=== PATIENT | female | born 1945 | race Caucasian/White ===

== ENCOUNTER 2016-09-28 11:57 | Emergency (ER) | payer OTHER ==
[~2016-09-28] VITALS: Ht 162.6 cm; Wt 69.8 kg
[~2016-09-28 11:57] MED LIST: ALBUTEROL0.63 MG/3 IH; ASPIR 8181 M1 PO; CALCIUM + D3 E1 EACH PO; CENTRUM SILVER1 EAC4 PO; COMBIVENT RESPIM4 GM IH; COUMADIN1 MG PO; COUMADIN2.5 MG PO; CRESTOR40 MG PO; CYTOTEC200 MCG PO; DEXILANT60 MG PO; DOMP10T PO; EXCEDRIN EXTRA1 EACH PO; FLONASE16 G1 BOTH NARES; GLUCOSAMINE &1 EAC1 PO; IRON325 MG PO; KEPPRA XR500 MG PO; OMEGA 3-6-9 11200 MG PO; PERCOCET 5/31 TABLET PO; SPIRIVA RESPIMAT4 G1 IH; SYMBICORT60 INHALA1 IH; TENORMIN100 MG PO; TRADJENTA5 MG PO; ULTRA SLEEP25 MG PO; ULTRAM50 MG PO; VISTARIL25 MG PO; VITAMIN C1000 MG PO; WELLBUTRIN100 MG PO; ZETIA10 MG PO; ZYRTEC10 M3 PO
[2016-09-28 13:03] LABS: HEMATOCRIT 41.6 % (36.0-46.0); MCH 29.9 PG (29.0-34.0); MCHC 32.7 G/DL (30.0-36.0); MCV 91.4 FL (83-99); MEAN PLAT.VOLUME 8.7 uM^3 (9.5-12.4); PLATELET COUNT 417 K/uL (156-360); RBC DIS.WIDTH-CV 12.4 % (11.8-14.6); RBC DIS.WIDTH-SD 41.4 % (39-53); RED BLOOD COUNT 4.55 M/uL (3.80-5.20); WHITE BLOOD COUNT 9.3 K/uL (4.1-10.2)
[2016-09-28 13:23] LABS: CHLORIDE 101 mEq/L (99-109); SODIUM 138 mEq/L (136-147)
[2016-09-28 13:26] LABS: ANION GAP 12 MEQ/L (2-14); GLUCOSE 138 mg/dL (70-99)
[2016-09-28 13:27] LABS: TOTAL BILIRUBIN 0.4 mg/dL (0.0-1.0)
[2016-09-28 13:28] LABS: ALKALINE PHOSPHATASE 126 IU/L (3-129)
[2016-09-28 13:29] LABS: GFR ESTIMATE (CALCULATED) 40 mL/min/
[2016-09-28 13:30] LABS: UREA NITROGEN (BUN) 12 mg/dL (9-23)
[2016-09-28 13:39] LABS: LIPASE 7 U/L (1.0-51.0)
[2016-09-28 14:29] LABS: ADD MIUA? NO; BILIRUBIN NEGATIVE; BLOOD NEGATIVE; COLOR YELLOW ((YELLOW)); GLUCOSE (STRIP) NEGATIVE; KETONES NEGATIVE; LEUKOCYTES NEGATIVE; NITRITE NEGATIVE; PROTEIN (STRIP) NEGATIVE; UCUL ADDED? NO; UROBILINOGEN 0.2 MG/DL (0.2-1.0)
[2016-09-28] MEDS ORDERED: TRAMADOL HCL50 MG PO (15:20)
[2016-09-28] MEDS ORDERED: CIPRO500 MG PO (15:20)
[2016-09-28 15:28] VITALS: BP 147/77
== END 2016-09-28 15:30 | disposition home or self-care (01) ==
LOC: EME 11:57
DX: K52.9 Noninfective gastroenteritis and colitis, unspecified (principal); K21.9 Gastro-esophageal reflux disease without esophagitis; J44.9 Chronic obstructive pulmonary disease, unspecified; E11.9 Type 2 diabetes mellitus without complications; Z87.891 Personal history of nicotine dependence
CPT/HCPCS: 74177; 80053; 81003; 83690; 85027; 99281; 99283; J7030

== ENCOUNTER 2016-10-01 14:45 | Inpatient (IN) | payer OTHER ==
[~2016-10-01] VITALS: Ht 162.6 cm; Wt 73.0 kg
[~2016-10-01 14:45] MED LIST changes: +CIPRO500 MG PO; +TRAMADOL HCL50 MG PO
[2016-10-01 15:56] LABS: HEMATOCRIT 46.8 % (36.0-46.0); MCH 29.8 PG (29.0-34.0); MCHC 33.8 G/DL (30.0-36.0); MCV 88.3 FL (83-99); NRBC (%) 0.1 /100 WBC (0-0); PLATELET COUNT 517 K/uL (156-360); RBC DIS.WIDTH-CV 12.8 % (11.8-14.6); RBC DIS.WIDTH-SD 41.2 % (39-53); WHITE BLOOD COUNT 20.3 K/uL (4.1-10.2)
[2016-10-01 16:06] LABS: CHLORIDE 94 mEq/L (99-109); POTASSIUM 4.1 mEq/L (3.7-5.4)
[2016-10-01 16:08] LABS: GLUCOSE 229 mg/dL (70-99)
[2016-10-01 16:09] LABS: ANION GAP 21 MEQ/L (2-14)
[2016-10-01 16:12] LABS: ALKALINE PHOSPHATASE 114 IU/L (3-129)
[2016-10-01 16:14] LABS: GFR ESTIMATE (CALCULATED) 19 mL/min/; SODIUM 128 mEq/L (136-147); TOTAL BILIRUBIN 0.3 mg/dL (0.0-1.0); UREA NITROGEN (BUN) 35 mg/dL (9-23)
[2016-10-01 16:32] LABS: TROP-I INTERPRETATION NEGATIVE; TROPONIN-I < 0.01 ng/mL (0.0-0.30)
[2016-10-01] MEDS ORDERED: SYMBICORT60 INHALAT IH (20:16)
[2016-10-01] MEDS ORDERED: SINGULAIR10 MG PO (20:21)
[2016-10-01] MEDS ORDERED: ASPIR 8181 M1 PO (20:22)
[2016-10-01] MEDS ORDERED: PROAIR HFA8.5 GM IH (20:22)
[2016-10-01 22:14] LABS: ADD MIUA? YES; BILIRUBIN NEGATIVE; BLOOD NEGATIVE; COLOR YELLOW ((YELLOW)); GLUCOSE (STRIP) 50; KETONES NEGATIVE; LEUKOCYTES NEGATIVE; NITRITE NEGATIVE; PROTEIN (STRIP) 30; SPECIFIC GRAVITY 1.016 (1.000-1.030); UROBILINOGEN 0.2 MG/DL (0.2-1.0)
[2016-10-01 22:19] LABS: BASE EXCESS -8.7 mEq/L (-3 to +3); BICARBONATE 15.5 mEq/L (22-26); CARBOXY HGB 1.6 % (0-5); METHEMOGLOBIN 1.2 % (0-1.5); PCO2 28 mm Hg (35-45); PO2 81 mm Hg (80-100); pH 7.35 (7.35-7.45)
[2016-10-01 22:20] LABS: COMMENTS - BLOOD GASES A+C+; DEVICE ROOM AIR; SITE LR; TOTAL RESP RATE 16 resp/min
[2016-10-01 22:25] LABS: BACTERIA RARE /HPF; EPITHELIAL CELLS RARE /HPF; MUCUS TRACE /LPF; RED BLOOD CELLS 0-5 /HPF (0-5); UCUL ADDED? NO; WHITE BLOOD CELLS 0-5 /HPF (0-5)
[2016-10-01 22:45] VITALS: BP 140/75
[2016-10-01 22:54] LABS: C-REACTIVE PROTEIN > 240.0 MG/L (0-10)
[2016-10-01 23:14] LABS: C DIFF TOXIN POSITIVE (NEGATIVE)
[2016-10-01 23:15] LABS: PROBE CHECK PASS
[2016-10-02 03:12] LABS: POTASSIUM 4.2 mEq/L (3.7-5.4); SODIUM 133 mEq/L (136-147)
[2016-10-02 03:14] LABS: GLUCOSE 153 mg/dL (70-99)
[2016-10-02 03:15] LABS: ANION GAP 14 MEQ/L (2-14)
[2016-10-02 03:18] LABS: UREA NITROGEN (BUN) 36 mg/dL (9-23)
[2016-10-02 03:23] LABS: CHLORIDE 106 mEq/L (99-109); GFR ESTIMATE (CALCULATED) 30 mL/min/
[2016-10-02 04:51] VITALS: BP 118/64
[2016-10-02 08:49] VITALS: BP 122/54
[2016-10-02 09:40] LABS: HEMATOCRIT 38.1 % (36.0-46.0); MCH 30.8 PG (29.0-34.0); MCHC 34.1 G/DL (30.0-36.0); MCV 90.3 FL (83-99); MEAN PLAT.VOLUME 9.4 uM^3 (9.5-12.4); NRBC (%) 0.1 /100 WBC (0-0); PLATELET COUNT 460 K/uL (156-360); RBC DIS.WIDTH-CV 13.1 % (11.8-14.6); WHITE BLOOD COUNT 20.3 K/uL (4.1-10.2)
[2016-10-02 09:42] LABS: RED BLOOD COUNT 4.22 M/uL (3.80-5.20)
[2016-10-02 10:04] LABS: ANION GAP 13 MEQ/L (2-14); CHLORIDE 101 MEQ/L (99-109); GFR ESTIMATE (CALCULATED) 32 mL/min/; GLUCOSE 151 mg/dL (70-99); POTASSIUM 4.2 MEQ/L (3.7-5.4); SAMPLE HEMOLYSIS CHECK 0; SAMPLE ICTERIC CHECK 0; SAMPLE LIPEMIA CHECK 0; SODIUM 132 MEQ/L (136-147); UREA NITROGEN (BUN) 32 mg/dL (9-23)
[2016-10-02 10:26] LABS: ABS NEUTROPHIL COUNT 17.6; BAND NEUTROPHILS 21.1 % (0-8.0); BURR CELLS 1+; EOSINOPHIL ABS CT 0.1; EOSINOPHILS 0.5 % (0-5.0); LYMPHOCYTES 4.3 % (15.0-45.0); METAMYELOCYTES 1.3 %; MYELOCYTES 0.4 %; OVALOCYTES 1+; PLAT.SUFFICIENCY INCREASED; POIKILOCYTOSIS 2+; SEG.NEUTROPHILS 65.5 % (46.0-76.0); SPHEROCYTES 1+; TOX.VACUOLIZATION 1+; TOXIC GRANULATION 1+
[2016-10-02 11:29] VITALS: BP 99/54
[2016-10-02 15:31] VITALS: BP 115/56
[2016-10-02 19:00] VITALS: BP 122/60
[2016-10-02 23:40] VITALS: BP 120/60
[2016-10-03 04:08] VITALS: BP 105/60
[2016-10-03 05:27] LABS: HEMATOCRIT 34.6 % (36.0-46.0); MCH 30.9 PG (29.0-34.0); MCHC 34.7 G/DL (30.0-36.0); MCV 89.2 FL (83-99); NRBC (%) 0.2 /100 WBC (0-0); RBC DIS.WIDTH-CV 13.4 % (11.8-14.6); RBC DIS.WIDTH-SD 43.7 % (39-53); RED BLOOD COUNT 3.88 M/uL (3.80-5.20); WHITE BLOOD COUNT 23.6 K/uL (4.1-10.2)
[2016-10-03 05:52] LABS: ALKALINE PHOSPHATASE 81 IU/L (3-129); ANION GAP 10 MEQ/L (2-14); CHLORIDE 104 MEQ/L (99-109); GFR ESTIMATE (CALCULATED) 47 mL/min/; GLUCOSE 152 mg/dL (70-99); POTASSIUM 3.8 MEQ/L (3.7-5.4); SAMPLE HEMOLYSIS CHECK 0; SAMPLE ICTERIC CHECK 0; SAMPLE LIPEMIA CHECK 0; SODIUM 132 MEQ/L (136-147); TOTAL BILIRUBIN 0.4 MG/DL (0.0-1.0); UREA NITROGEN (BUN) 19 mg/dL (9-23)
[2016-10-03 06:05] LABS: PLATELET COUNT UNABLE TO REPORT K/uL (156-360)
[2016-10-03 07:16] LABS: ABS NEUTROPHIL COUNT 21.7; BURR CELLS 1+; EOSINOPHIL ABS CT 0; INSTRUMENT ABS NEUTROPHIL CT 18.5 K/uL; LYMPHOCYTES 2.5 % (15.0-45.0); NUCLEATED RBC'S 0.5; OVALOCYTES 1+; PLAT.SUFFICIENCY INCREASED; POIKILOCYTOSIS 2+; POLYCHROMASIA 1+
[2016-10-03 08:10] LABS: POINT-OF-CARE METER ID UU13113698; POINT-OF-CARE USER ID ENVKC36
[2016-10-03 08:15] VITALS: BP 103/60
[2016-10-03 11:43] LABS: POINT-OF-CARE USER ID ENVKC36
[2016-10-03 12:51] VITALS: BP 105/69
[2016-10-03 16:16] VITALS: BP 115/63
[2016-10-03 16:40] LABS: POINT-OF-CARE USER ID ENVKC36
[2016-10-03 19:43] VITALS: BP 123/62
[2016-10-03 21:10] LABS: POINT-OF-CARE METER ID UU13113698
[2016-10-04 00:20] VITALS: BP 125/66
[2016-10-04 03:20] VITALS: BP 135/71
[2016-10-04 05:38] LABS: MCH 29.7 PG (29.0-34.0); MCHC 33.5 G/DL (30.0-36.0); MCV 88.5 FL (83-99); MEAN PLAT.VOLUME 8.9 uM^3 (9.5-12.4); NRBC (%) 0.6 /100 WBC (0-0); RBC DIS.WIDTH-CV 13.6 % (11.8-14.6); RED BLOOD COUNT 3.84 M/uL (3.80-5.20)
[2016-10-04 06:07] LABS: ALKALINE PHOSPHATASE 90 IU/L (3-129); ANION GAP 12 MEQ/L (2-14); CHLORIDE 104 MEQ/L (99-109); GFR ESTIMATE (CALCULATED) 58 mL/min/; GLUCOSE 144 mg/dL (70-99); POTASSIUM 3.8 MEQ/L (3.7-5.4); SAMPLE HEMOLYSIS CHECK 0; SAMPLE ICTERIC CHECK 0; SAMPLE LIPEMIA CHECK 0; SODIUM 134 MEQ/L (136-147); UREA NITROGEN (BUN) 10 mg/dL (9-23)
[2016-10-04 06:13] LABS: PLATELET COUNT 471 K/uL (156-360)
[2016-10-04 06:34] LABS: TOTAL BILIRUBIN 0.3 MG/DL (0.0-1.0)
[2016-10-04 07:40] LABS: ANISOCYTOSIS 1+; BAND NEUTROPHILS 7.9 % (0-8.0); BASOPHILS 1.7 %; BURR CELLS 2+; EOSINOPHIL ABS CT 0.2; EOSINOPHILS 0.9 % (0-5.0); INSTRUMENT ABS NEUTROPHIL CT 16.8 K/uL; LYMPHOCYTES 4.4 % (15.0-45.0); MACROCYTES 1+; METAMYELOCYTES 0.9 %; MYELOCYTES 0.4 %; NUCLEATED RBC'S 1.8; PLAT.SUFFICIENCY INCREASED; POIKILOCYTOSIS 3+; POLYCHROMASIA 1+; SEG.NEUTROPHILS 78.5 % (46.0-76.0)
[2016-10-04 14:28] VITALS: BP 126/78
[2016-10-04 16:07] VITALS: BP 116/69
[2016-10-04 23:13] VITALS: BP 129/59
[2016-10-05 06:40] LABS: MCH 30.5 PG (29.0-34.0); MCHC 33.9 G/DL (30.0-36.0); MCV 89.9 FL (83-99); MEAN PLAT.VOLUME 8.8 uM^3 (9.5-12.4); NRBC (%) 0.7 /100 WBC (0-0); PLATELET COUNT 508 K/uL (156-360); RBC DIS.WIDTH-CV 13.8 % (11.8-14.6); RBC DIS.WIDTH-SD 45.4 % (39-53); RED BLOOD COUNT 3.67 M/uL (3.80-5.20); WHITE BLOOD COUNT 18.4 K/uL (4.1-10.2)
[2016-10-05 07:09] LABS: ALKALINE PHOSPHATASE 99 IU/L (3-129); ANION GAP 8 MEQ/L (2-14); CHLORIDE 105 MEQ/L (99-109); GFR ESTIMATE (CALCULATED) > 59 mL/min/; GLUCOSE 129 mg/dL (70-99); POTASSIUM 3.6 MEQ/L (3.7-5.4); SAMPLE HEMOLYSIS CHECK 0; SAMPLE ICTERIC CHECK 0; SAMPLE LIPEMIA CHECK 0; SODIUM 134 MEQ/L (136-147); UREA NITROGEN (BUN) 11 mg/dL (9-23)
[2016-10-05 07:12] LABS: TOTAL BILIRUBIN 0.4 MG/DL (0.0-1.0)
[2016-10-05 07:30] VITALS: BP 114/55
[2016-10-05 15:40] VITALS: BP 113/58
[2016-10-05 23:19] VITALS: BP 122/61
[2016-10-06 06:37] LABS: HEMATOCRIT 34.5 % (36.0-46.0); MCH 29.7 PG (29.0-34.0); MCV 89.8 FL (83-99); MEAN PLAT.VOLUME 8.9 uM^3 (9.5-12.4); NRBC (%) 0.4 /100 WBC (0-0); PLATELET COUNT 546 K/uL (156-360); RBC DIS.WIDTH-CV 13.9 % (11.8-14.6); RBC DIS.WIDTH-SD 45.4 % (39-53); RED BLOOD COUNT 3.84 M/uL (3.80-5.20)
[2016-10-06 07:32] LABS: ALKALINE PHOSPHATASE 95 IU/L (3-129); ANION GAP 9 MEQ/L (2-14); CHLORIDE 107 MEQ/L (99-109); GFR ESTIMATE (CALCULATED) > 59 mL/min/; GLUCOSE 111 mg/dL (70-99); POTASSIUM 3.7 MEQ/L (3.7-5.4); SAMPLE HEMOLYSIS CHECK 0; SAMPLE ICTERIC CHECK 0; SAMPLE LIPEMIA CHECK 0; SODIUM 139 MEQ/L (136-147); UREA NITROGEN (BUN) 10 mg/dL (9-23)
[2016-10-06 07:34] LABS: TOTAL BILIRUBIN 0.3 MG/DL (0.0-1.0)
[2016-10-06 07:35] VITALS: BP 101/61
[2016-10-06 08:21] LABS: ABS NEUTROPHIL COUNT 16.7; ANISOCYTOSIS 1+; BAND NEUTROPHILS 1.7 % (0-8.0); BURR CELLS 1+; EOSINOPHIL ABS CT 0.2; EOSINOPHILS 0.9 % (0-5.0); LYMPHOCYTES 3.5 % (15.0-45.0); OVALOCYTES 1+; PLAT.SUFFICIENCY INCREASED; POIKILOCYTOSIS 2+; SEG.NEUTROPHILS 86.1 % (46.0-76.0)
[2016-10-06 14:55] VITALS: BP 131/63
[2016-10-06 22:54] VITALS: BP 135/67
[2016-10-07 07:15] LABS: MCH 31.3 PG (29.0-34.0); MCHC 34.7 G/DL (30.0-36.0); MCV 90.2 FL (83-99); MEAN PLAT.VOLUME 8.8 uM^3 (9.5-12.4); NRBC (%) 0.4 /100 WBC (0-0); PLATELET COUNT 599 K/uL (156-360); RBC DIS.WIDTH-SD 46.5 % (39-53); RED BLOOD COUNT 3.99 M/uL (3.80-5.20); WHITE BLOOD COUNT 17.1 K/uL (4.1-10.2)
[2016-10-07 07:37] LABS: ANION GAP 10 MEQ/L (2-14); CHLORIDE 108 MEQ/L (99-109); GFR ESTIMATE (CALCULATED) > 59 mL/min/; GLUCOSE 135 mg/dL (70-99); POTASSIUM 3.7 MEQ/L (3.7-5.4); SAMPLE HEMOLYSIS CHECK 0; SAMPLE ICTERIC CHECK 0; SAMPLE LIPEMIA CHECK 0; SODIUM 139 MEQ/L (136-147); UREA NITROGEN (BUN) 8 mg/dL (9-23)
[2016-10-07 07:44] LABS: ANISOCYTOSIS 1+; ATYPICAL LYMPHOCYTE 0.9 %; BAND NEUTROPHILS 1.7 % (0-8.0); BURR CELLS 2+; EOSINOPHIL ABS CT 0; INSTRUMENT ABS NEUTROPHIL CT 13.5 K/uL; LYMPHOCYTES 5.1 % (15.0-45.0); MACROCYTES 1+; METAMYELOCYTES 0.9 %; PLAT.SUFFICIENCY INCREASED; PLATELET CLUMPS PRESENT - PLATELET COUNT APPEARS INCREASED; SEG.NEUTROPHILS 86.3 % (46.0-76.0)
[2016-10-07 08:20] VITALS: BP 115/65
[2016-10-07 16:41] VITALS: BP 138/58
[2016-10-07 23:16] VITALS: BP 129/62
[2016-10-08 06:32] LABS: EOSINOPHIL (%) 0.6 % (0-5); EOSINOPHIL COUNT 0.1 K/uL (0-0.3); HEMATOCRIT 37.7 % (36.0-46.0); IMMATURE GRANULOCYTE (%) 3.8 % (0.0-0.7); IMMATURE GRANULOCYTE COUNT 0.6 K/uL; INSTRUMENT ABS NEUTROPHIL CT 11.4 K/uL; LYMPHOCYTE COUNT 1.3 K/uL (1.0-2.8); MCV 91.3 FL (83-99); MEAN PLAT.VOLUME 9.1 uM^3 (9.5-12.4); MONOCYTE (%) 6.8 % (3-12); NEUTROPHIL (%) 79.4 % (45-76); NEUTROPHIL COUNT 11.4 K/uL (1.8-6.4); NRBC (%) 0.3 /100 WBC (0-0); PLATELET COUNT 591 K/uL (156-360); RBC DIS.WIDTH-CV 14.4 % (11.8-14.6); RBC DIS.WIDTH-SD 47.7 % (39-53); RED BLOOD COUNT 4.13 M/uL (3.80-5.20); WHITE BLOOD COUNT 14.3 K/uL (4.1-10.2)
[2016-10-08 06:57] LABS: ANION GAP 12 MEQ/L (2-14); CHLORIDE 107 MEQ/L (99-109); GFR ESTIMATE (CALCULATED) > 59 mL/min/; GLUCOSE 128 mg/dL (70-99); POTASSIUM 3.7 MEQ/L (3.7-5.4); SAMPLE HEMOLYSIS CHECK 0; SAMPLE ICTERIC CHECK 0; SAMPLE LIPEMIA CHECK 0; SODIUM 139 MEQ/L (136-147); UREA NITROGEN (BUN) 8 mg/dL (9-23)
[2016-10-08 06:59] LABS: ALKALINE PHOSPHATASE 110 IU/L (3-129); ANION GAP 12 MEQ/L (2-14); CHLORIDE 109 MEQ/L (99-109); GFR ESTIMATE (CALCULATED) > 59 mL/min/; GLUCOSE 127 mg/dL (70-99); POTASSIUM 3.8 MEQ/L (3.7-5.4); SAMPLE HEMOLYSIS CHECK 0; SAMPLE ICTERIC CHECK 0; SAMPLE LIPEMIA CHECK 0; SODIUM 140 MEQ/L (136-147); TOTAL BILIRUBIN 0.3 MG/DL (0.0-1.0); UREA NITROGEN (BUN) 8 mg/dL (9-23)
[2016-10-08 07:40] VITALS: BP 125/74
[2016-10-08 16:57] VITALS: BP 125/74
[2016-10-09] VITALS: BP 134/70
[2016-10-09 08:04] VITALS: BP 111/61
[2016-10-09 08:42] LABS: EOSINOPHIL (%) 0.9 % (0-5); EOSINOPHIL COUNT 0.1 K/uL (0-0.3); HEMATOCRIT 37.4 % (36.0-46.0); IMMATURE GRANULOCYTE (%) 2.1 % (0.0-0.7); IMMATURE GRANULOCYTE COUNT 0.2 K/uL; LYMPHOCYTE COUNT 1.4 K/uL (1.0-2.8); MCHC 33.7 G/DL (30.0-36.0); MCV 92.1 FL (83-99); MEAN PLAT.VOLUME 8.8 uM^3 (9.5-12.4); MONOCYTE (%) 7.2 % (3-12); MONOCYTE COUNT 0.8 K/uL (0-0.8); NEUTROPHIL (%) 75.8 % (45-76); PLATELET COUNT 658 K/uL (156-360); RBC DIS.WIDTH-CV 14.6 % (11.8-14.6); RBC DIS.WIDTH-SD 48.6 % (39-53); RED BLOOD COUNT 4.06 M/uL (3.80-5.20); WHITE BLOOD COUNT 10.5 K/uL (4.1-10.2)
[2016-10-09 09:09] LABS: ANION GAP 7 MEQ/L (2-14); CHLORIDE 106 MEQ/L (99-109); GFR ESTIMATE (CALCULATED) > 59 mL/min/; GLUCOSE 138 mg/dL (70-99); POTASSIUM 3.4 MEQ/L (3.7-5.4); SAMPLE HEMOLYSIS CHECK 0; SAMPLE ICTERIC CHECK 0; SAMPLE LIPEMIA CHECK 0; SODIUM 138 MEQ/L (136-147); UREA NITROGEN (BUN) 8 mg/dL (9-23)
[2016-10-10 09:02] VITALS: BP 115/61
[2016-10-10 15:26] VITALS: BP 126/58
[2016-10-10 16:56] LABS: ANION GAP 6 MEQ/L (2-14); CHLORIDE 110 MEQ/L (99-109); POTASSIUM 3.7 MEQ/L (3.7-5.4); SAMPLE HEMOLYSIS CHECK 0; SAMPLE ICTERIC CHECK 0; SAMPLE LIPEMIA CHECK 0; SODIUM 141 MEQ/L (136-147)
[2016-10-10 17:11] LABS: GFR ESTIMATE (CALCULATED) > 59 mL/min/; UREA NITROGEN (BUN) 10 mg/dL (9-23)
[2016-10-10 17:20] LABS: GLUCOSE 91 mg/dL (70-99)
[2016-10-11 02:56] VITALS: BP 128/66
[2016-10-11 06:34] LABS: HEMATOCRIT 35.4 % (36.0-46.0); MCH 29.7 PG (29.0-34.0); MCHC 32.2 G/DL (30.0-36.0); MCV 92.2 FL (83-99); MEAN PLAT.VOLUME 8.9 uM^3 (9.5-12.4); PLATELET COUNT 656 K/uL (156-360); RBC DIS.WIDTH-CV 14.6 % (11.8-14.6); RBC DIS.WIDTH-SD 48.2 % (39-53); RED BLOOD COUNT 3.84 M/uL (3.80-5.20); WHITE BLOOD COUNT 8.2 K/uL (4.1-10.2)
[2016-10-11 07:16] LABS: ALKALINE PHOSPHATASE 86 IU/L (3-129); ANION GAP 7 MEQ/L (2-14); CHLORIDE 110 MEQ/L (99-109); GFR ESTIMATE (CALCULATED) > 59 mL/min/; GLUCOSE 101 mg/dL (70-99); POTASSIUM 3.9 MEQ/L (3.7-5.4); SAMPLE HEMOLYSIS CHECK 0; SAMPLE ICTERIC CHECK 0; SAMPLE LIPEMIA CHECK 0; SODIUM 141 MEQ/L (136-147); TOTAL BILIRUBIN 0.3 MG/DL (0.0-1.0); UREA NITROGEN (BUN) 8 mg/dL (9-23)
[2016-10-11 07:50] VITALS: BP 122/70
[2016-10-11 15:59] VITALS: BP 125/76
[2016-10-11 22:35] VITALS: BP 133/70
[2016-10-12 06:38] VITALS: BP 128/63
[2016-10-12] MEDS ORDERED: FLORASTOR250 MG PO (08:26)
[2016-10-12 15:00] VITALS: BP 131/63
[2016-10-12 22:40] VITALS: BP 141/64
[2016-10-13 06:37] LABS: ANION GAP 7 MEQ/L (2-14); CHLORIDE 109 MEQ/L (99-109); GFR ESTIMATE (CALCULATED) > 59 mL/min/; GLUCOSE 122 mg/dL (70-99); POTASSIUM 3.4 MEQ/L (3.7-5.4); SAMPLE HEMOLYSIS CHECK 0; SAMPLE ICTERIC CHECK 0; SAMPLE LIPEMIA CHECK 0; SODIUM 141 MEQ/L (136-147); UREA NITROGEN (BUN) 11 mg/dL (9-23)
[2016-10-13 07:00] VITALS: BP 134/64
[2016-10-13 16:17] VITALS: BP 130/60
[2016-10-14 00:05] VITALS: BP 119/59
[2016-10-14 05:30] VITALS: BP 130/75
[2016-10-14 07:24] VITALS: BP 124/78
[2016-10-14 15:38] VITALS: BP 111/57
[2016-10-15] VITALS: BP 140/72
[2016-10-15] MEDS ORDERED: VANCOCIN 250 M250 MG PO (11:29)
== END 2016-10-15 12:38 | disposition home health service (06) | DRG 872 ==
LOC: EME 14:45 → EDOF 21:30 → 5EAST 21:30 → 4EAST 21:30 → 5EAST 10-04 14:14 → ENPENDDIS 10-15 → 5EAST 10-15 12:38
PROVIDERS: Hospitalist; Internal Medicine Gastroenterology; Nurse Practitioner Adult Health; Nurse Practitioner Family; Pediatrics; Physician Assistant Medical
DX: A41.4 Sepsis due to anaerobes (principal); A04.7 Enterocolitis due to Clostridium difficile; R65.20 Severe sepsis without septic shock; N17.9 Acute kidney failure, unspecified; E87.2 Acidosis; E87.1 Hypo-osmolality and hyponatremia; E86.0 Dehydration; E87.6 Hypokalemia; K62.3 Rectal prolapse; J44.9 Chronic obstructive pulmonary disease, unspecified; K21.9 Gastro-esophageal reflux disease without esophagitis; I25.10 Atherosclerotic heart disease of native coronary artery without angina pectoris; G40.909 Epilepsy, unspecified, not intractable, without status epilepticus; I10 Essential (primary) hypertension; F41.9 Anxiety disorder, unspecified; E78.5 Hyperlipidemia, unspecified; E11.9 Type 2 diabetes mellitus without complications; F32.9 Major depressive disorder, single episode, unspecified; Z96.641 Presence of right artificial hip joint; Z79.51 Long term (current) use of inhaled steroids; Z79.84 Long term (current) use of oral hypoglycemic drugs; Z79.82 Long term (current) use of aspirin; Z87.891 Personal history of nicotine dependence
CPT/HCPCS: 36600; 71020; 74020; 74176; 74177; 80048; 80048 91; 80053; 80069; 81003; 82040; 82803; 82948; 83605; 83690; 84484; 85025; 85027; 86140; 87040; 87177; 87493; 87506; 93005; 94640; 94640 76; 99202; 99281; 99283; 99285; J0610; J0692; J1170; J1644; J3370; J3480; J7030; J7040; J7050; S0030

== ENCOUNTER → 2016-10-26 | Outpatient (CLI) | payer OTHER ==
[~2016-10-26] MED LIST changes: +FLORASTOR250 MG PO; +PROAIR HFA8.5 GM IH; +SINGULAIR10 MG PO; +SYMBICORT60 INHALAT IH; +VANCOCIN 250 M250 MG PO
== END | disposition home or self-care (01) ==
LOC: AMB 08:30
DX: A04.7 Enterocolitis due to Clostridium difficile (principal)
CPT/HCPCS: 71010; G0455